=== PATIENT | male | born 1970 | race African-American/Black ===

== ENCOUNTER 2020-02-12 12:55 | Outpatient (CLI) | payer MEDICAID ==
[~2020-02-12] VITALS: Ht 177.8 cm; Wt 84.8 kg
[2020-02-12 13:26] VITALS: BP 100/60
--- NOTE | 2020-02-12 16:14 | Consultation ---
DATE OF CONSULTATION: 02/12/2020 CONSULTING PHYSICIAN: Adam Reich MD CHIEF COMPLAINT: Chronic GERD, abdominal pain, constipation. PAST MEDICAL HISTORY: GERD. PAST SURGICAL HISTORY: None. MEDICATIONS: Multivitamin. FAMILY HISTORY: Grandfather had colon cancer. SOCIAL HISTORY: Patient denies any tobacco, alcohol, or drug abuse. ALLERGIES: To agave. REVIEW OF SYSTEMS: Positive for GERD, constipation, bloating. PHYSICAL EXAMINATION: VITAL SIGNS: Temperature 97, blood pressure is 100/65, pulse is 68, respirations 20. HEENT: Normocephalic, atraumatic. Sclerae are anicteric. NECK: Supple. No evidence of obvious lymphadenopathy. CARDIOVASCULAR: Regular rate and rhythm. Plus S1-S2. LUNGS: Clear to auscultation bilaterally. ABDOMEN: Positive bowel sounds. Soft and nontender. No rebound. No guarding. No peritoneal sign. EXTREMITIES: No cyanosis, no clubbing, no edema. ASSESSMENT AND PLAN: This is a 49-year-old male with chronic GERD, also complained of bloating, constipation. Patient is over age 50, never had a colonoscopy, so needs colonoscopy, also he needs endoscopy for chronic GERD symptoms. Plan to do both when the authorization is obtained. Adam Reich M.D. DR: CURT JOB#: [id number] CC:
== END 2020-02-12 14:55 | disposition home or self-care (01) ==
LOC: PAN 12:55
DX: K21.9 Gastro-esophageal reflux disease without esophagitis (principal); R10.9 Unspecified abdominal pain; K59.00 Constipation, unspecified; R14.0 Abdominal distension (gaseous)
CPT/HCPCS: G0463

== ENCOUNTER 2020-04-16 14:48 | Outpatient (CLI) | payer MEDICAID ==
[2020-04-16 15:02] VITALS: BP 134/83
--- NOTE | 2020-04-16 15:39 | General Progress Note ---
Subjective ROS Limited/Unobtainable: No Allergies: Uncoded Allergies: Agave (Adverse Reaction, Unknown, 02/12/20) Objective Last 24 Hour Vital Signs Date Time Temp Pulse Resp B/P (MAP) Pulse Ox O2 Delivery O2 Flow Rate FiO2 04/16/20 15:02 97.0 85 16 134/83 97 General Appearance: alert EENT: normal ENT inspection Neck: supple Cardiovascular: normal rate Respiratory/Chest: decreased breath sounds Abdomen: normal bowel sounds, non tender, soft Extremities: non-tender Assessment/Plan Assessment/Plan: s/p EGD and colonoscopy gastritis repeat colon in 10 years Adam Reich MD Apr 16, 2020 15:38
== END 2020-04-16 16:48 | disposition home or self-care (01) ==
LOC: PAN 14:48
DX: K29.70 Gastritis, unspecified, without bleeding (principal)
CPT/HCPCS: 99212